=== PATIENT | male | born 1990 | race Caucasian/White ===

== ENCOUNTER 2018-03-20 12:53 | Emergency (ER) | payer OTHER ==
[2018-03-20 12:59] VITALS: BP 126/85; PULSE 84; RESP 18; TEMP 98.2
--- NOTE | 2018-03-20 13:29 | ED ---
General Adult HPI - General Chief complaint: Extremity Injury, Upper Stated complaint: rt shoulder injury Time Seen by Provider: 03/20/18 13:05 Source: patient, RN notes reviewed Mode of arrival: ambulatory Limitations: no limitations - History of Present Illness Initial comments: Patient is a 27-year-old male presented to the emergency room today with chief complaint of an injury to the right shoulder occurred earlier this morning. He does admit that he was walking down some steps when he slipped falling down approximate 5 steps landing on the right shoulder. It isn't pain is worse with extension and abduction. Patient denies any head injury or loss conscious. Patient denies any other complaints or symptoms. Patient denies any recent fever , chills, shortness of breath, chest pain, back pain, abdominal pain, nausea or vomiting, numbness or tingling, headaches or visual changes, or any other complaints. - Related Data Previous Rx's Medication Instructions Recorded Ibuprofen [Motrin] 600 mg PO Q6HR PRN #40 day 03/20/18 Allergies Allergy/AdvReac Type Severity Reaction Status Date / Time No Known Allergies Allergy Verified 03/20/18 12:58 Review of Systems ROS Statement: Those systems with pertinent positive or pertinent negative responses have been documented in the HPI. ROS Other: All systems not noted in ROS Statement are negative. 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 Neck: The neck is supple, there is no tenderness or JVD. Musculoskeletal: Normal appearance the right shoulder no obvious deformity. Patient shows full range of motion with abduction and extension of the right shoulder due to pain. Locally tender over both anterior and posterior aspects. Radial pulses is 2+. Sensations intact. Neurological: A&O x 3. CN II-XII intact, There are no obvious motor or sensory deficits. Coordination appears grossly intact. Speech is normal. Skin: Skin is warm and dry and no rashes or lesions are noted. Psychiatric: Normal mood and affect. Limitations: no limitations Course Vital Signs 03/20/18 12:54 Temperature 98.2 F Pulse Rate 84 Respiratory 18 Rate Blood Pressure 126/85 O2 Sat by Pulse 99 Oximetry Medical Decision Making - Medical Decision Making X-ray reviewed and negative for any acute fracture dislocation. Results were discussed with patient. Patient is advised to ice the affected area and use anti-inflammatories for pain. Advised following up with orthopedics if symptoms persist over the next 7-10 days. Disposition Clinical Impression: Shoulder injury Disposition: HOME SELF-CARE Condition: Good Instructions: Shoulder Sprain (ED) Additional Instructions: Please use ibuprofen as prescribed. Please use heat or ice to the area as discussed. Please follow-up with family doctor/orthopedics in 7-10 days if symptoms persist. Please return to emergency room if the symptoms increase or worsen or for any other concerns. Prescriptions: Ibuprofen [Motrin] 600 mg PO Q6HR PRN #40 day PRN Reason: Pain Is patient prescribed a controlled substance at d/c from ED?: No Referrals: None,Stated [Primary Care Provider] - 1-2 days Ammon Hubbard MD [STAFF PHYSICIAN] - 1-2 days Time of Disposition: 13:43
--- NOTE | 2018-03-20 13:39 | XR ---
EXAMINATION TYPE: XR shoulder complete RT DATE OF EXAM: 03/20/2018 CLINICAL HISTORY: Fall injury with pain. TECHNIQUE: Three views of the right shoulder are obtained. COMPARISON: None. FINDINGS: There is no acute fracture/dislocation evident in the right shoulder. The acromioclavicul ar and glenohumeral joint spaces appear within normal limits. The visualized ribs are intact and unr emarkable. IMPRESSION: There is no acute fracture or dislocation in the right shoulder.
== END 2018-03-20 13:51 | disposition home or self-care (01) ==
LOC: EC 12:53
DX: S49.91XA Unspecified injury of right shoulder and upper arm, initial encounter (principal); F17.200 Nicotine dependence, unspecified, uncomplicated; Z86.14 Personal history of Methicillin resistant Staphylococcus aureus infection; W10.9XXA Fall (on) (from) unspecified stairs and steps, initial encounter; Y93.01 Activity, walking, marching and hiking; Y92.199 Unspecified place in other specified residential institution as the place of occurrence of the external cause
CPT/HCPCS: 99283